=== PATIENT | female | born 1970 | race Caucasian/White ===

== ENCOUNTER 2019-01-13 16:06 | Outpatient (CLI) | payer BC ==
--- NOTE | 2019-01-19 14:18 | MMO ---
Bilateral MAMMO Bilat Screen [facility]. CLINICAL HISTORY: Patient is 48 years old and is seen for screening. The patient has no family history of breast cancer. The patient has no personal history of cancer. VIEWS: The views performed were: bilateral craniocaudal with tomosynthesis; bilateral mediolateral oblique with tomosynthesis; and bilateral exaggerated craniocaudal. FILMS COMPARED: The present examination has been compared to prior imaging studies performed at [facility] on 12/22/2015 and 01/14/2018. MAMMOGRAM FINDINGS: The breasts are heterogeneously dense, which could obscure a lesion on mammography. There are no suspicious masses, suspicious calcifications, or new areas of architectural distortion. IMPRESSION: THERE IS NO MAMMOGRAPHIC EVIDENCE OF MALIGNANCY. A ROUTINE FOLLOW-UP MAMMOGRAM IN 1 YEAR IS RECOMMENDED. THE RESULTS OF THIS EXAM WERE SENT TO THE PATIENT. ACR BI-RADS Category 1 - Negative MAMMOGRAPHY NOTE: 1. A negative mammogram report should not delay a biopsy if a dominant of clinically suspicious mass is present. 2. Approximately 10% to 15% of breast cancers are not detected by mammography. 3. Adenosis and dense breasts may obscure an underlying neoplasm. Reported by: JEMMA CASTRO MD Electonically Signed: [id number]
== END 2019-01-13 16:07 | disposition home or self-care (01) ==
LOC: BICMAMMO 16:06
PROVIDERS: ATTEND Physician Assistant Medical
DX: Z12.31 Encounter for screening mammogram for malignant neoplasm of breast (principal)
CPT/HCPCS: 77063; 77067

== ENCOUNTER 2019-02-18 09:33 | Outpatient (CLI) | payer BC ==
--- NOTE | 2019-02-18 09:56 | ULT ---
EXAM: US Gallbladder RUQ CLINICAL HISTORY: Right upper quadrant pain. COMPARISON: None. FINDINGS: Pancreas: Head and proximal body have a normal echotexture. The remainder the pancreas is obscured b y bowel gas. Liver:Normal parenchymal echotexture. No hepatic masses or intrahepatic biliary dilatation. The conto ur of the hepatic margins maintained. Right hepatic lobe measures 14 cm. Portal vein: Patent with appropriate directional flow Gallbladder: No sonographic evidence of cholelithiasis, gallbladder wall thickening or pericholecysti c fluid. Winkler's sign:Negative Bile ducts: Bile duct diameter is 0.4 cm Right kidney: No hydronephrosis. Right kidney measures 10.7 cm in length. IMPRESSION: Unremarkable exam.
== END 2019-02-18 09:34 | disposition home or self-care (01) ==
LOC: SCSULT 09:33
PROVIDERS: ATTEND Physician Assistant Medical
DX: R10.11 Right upper quadrant pain (principal)
CPT/HCPCS: 76705